=== PATIENT | female | born 1990 | race Two or more races ===

== ENCOUNTER 2021-10-30 16:00 | Emergency (ER) | payer MEDICAID, OTHER ==
[2021-10-30 16:00] VITALS: BP 145/92
== END 2021-10-30 22:09 | disposition left against medical advice (07) ==
LOC: ER 16:00 → EDSEX 16:00 → ER 22:09
DX: U07.1 COVID-19 (principal); R05.9 Cough, unspecified; R11.2 Nausea with vomiting, unspecified; R19.7 Diarrhea, unspecified; R10.9 Unspecified abdominal pain; Z53.21 Procedure and treatment not carried out due to patient leaving prior to being seen by health care provider
CPT/HCPCS: 36415; 71045; 87426